=== PATIENT | female | born 1980 | race Caucasian/White ===

== ENCOUNTER 2018-06-15 11:26 | Emergency (ER) | payer OTHER ==
[~2018-06-15] VITALS: Ht 149.9 cm; Wt 71.7 kg
[2018-06-15 11:36] VITALS: Ht 149.9 cm; Wt 71.7 kg
[2018-06-15 12:09] LABS: BASOPHIL % 0.4 % (0-2); PLATELET COUNT 396 x10^3mcL (130-400); RED CELL DISTRIBUTION WIDTH 19.2 % (11.5-14.5)
[2018-06-15 12:10] LABS: rbc morphology (normal/abnorm) ABNORMAL (NORMAL)
[2018-06-15 12:24] LABS: CALCIUM 8.4 mg/dL (8.5-10.1); CARBON DIOXIDE 27.3 mmol/L (21-32); CHLORIDE SERUM 106 mmol/L (98-107); CREATININE SERUM 0.5 mg/dL (0.6-1.0); GFR1 > 60 mL/min; GLUCOSE SERUM 92 mg/dL (74-106); POTASSIUM SERUM 3.1 mmol/L (3.5-5.1); SODIUM SERUM 138 mmol/L (136-145)
[2018-06-15 13:07] VITALS: BP 120/68
== END 2018-06-15 13:07 | disposition home or self-care (01) ==
LOC: ED 11:26
PROVIDERS: Emergency Medicine
DX: M54.5 Low back pain (principal); D50.9 Iron deficiency anemia, unspecified; E78.00 Pure hypercholesterolemia, unspecified; J45.909 Unspecified asthma, uncomplicated; M19.90 Unspecified osteoarthritis, unspecified site
CPT/HCPCS: J1885

== ENCOUNTER 2019-04-20 06:39 | Emergency (ER) | payer OTHER ==
[~2019-04-20] VITALS: Ht 149.9 cm; Wt 72.1 kg
[2019-04-20 06:47] VITALS: BP 103/56; Ht 149.9 cm; Wt 72.1 kg
== END 2019-04-20 06:56 | disposition home or self-care (01) ==
LOC: ED 06:39
DX: T63.481A Toxic effect of venom of other arthropod, accidental (unintentional), initial encounter (principal); J45.909 Unspecified asthma, uncomplicated; M19.90 Unspecified osteoarthritis, unspecified site; Z90.49 Acquired absence of other specified parts of digestive tract; Y92.89 Other specified places as the place of occurrence of the external cause

== ENCOUNTER 2019-05-09 13:33 | Emergency (ER) | payer OTHER ==
[~2019-05-09] VITALS: Ht 149.9 cm; Wt 70.8 kg
[2019-05-09 14:17] VITALS: BP 124/64; Ht 149.9 cm; Wt 70.8 kg
== END 2019-05-09 15:20 | disposition left against medical advice (07) ==
LOC: ED 13:33
DX: Z53.21 Procedure and treatment not carried out due to patient leaving prior to being seen by health care provider (principal)

== ENCOUNTER 2019-06-16 01:43 | Emergency (ER) | payer OTHER ==
[~2019-06-16] VITALS: Ht 149.9 cm; Wt 73.9 kg
[2019-06-16 01:51] VITALS: Ht 149.9 cm; Wt 73.9 kg
[2019-06-16 02:41] VITALS: BP 127/71
== END 2019-06-16 02:41 | disposition home or self-care (01) ==
LOC: ED 01:43
DX: S40.021A Contusion of right upper arm, initial encounter (principal); W18.39XA Other fall on same level, initial encounter; Y93.89 Activity, other specified; Y92.89 Other specified places as the place of occurrence of the external cause; Y99.0 Civilian activity done for income or pay

== ENCOUNTER 2020-01-03 20:22 | Emergency (ER) | payer OTHER ==
[~2020-01-03] VITALS: Ht 160 cm; Wt 75.7 kg
[2020-01-03 20:32] VITALS: Ht 160 cm; Wt 75.7 kg
[2020-01-03 21:43] LABS: BASOPHIL % 1.4 % (0-2)
[2020-01-03 21:54] LABS: PLATELET COUNT 488 x10^3mcL (130-400); RED CELL DISTRIBUTION WIDTH 19.9 % (11.5-14.5)
[2020-01-03 21:57] LABS: CALCIUM 8.2 mg/dL (8.5-10.1); CARBON DIOXIDE 26.7 mmol/L (21-32); CHLORIDE SERUM 107 mmol/L (98-107); CREATININE SERUM 0.5 mg/dL (0.6-1.0); GFR1 > 60 mL/min; GLUCOSE SERUM 99 mg/dL (74-106); POTASSIUM SERUM 3.8 mmol/L (3.5-5.1); SODIUM SERUM 138 mmol/L (136-145)
[2020-01-03 22:01] LABS: ALKALINE PHOSPHATASE 107 U/L (46-116); ALT/SGPT 21 U/L (14-59); AST/SGOT 13 U/L (15-37); BILIRUBIN TOTAL 0.25 mg/dL (0.20-1.00); LIPASE 178 IU/L (73-393); TOTAL PROTEIN, SERUM 7.8 g/dL (6.4-8.2)
[2020-01-03 22:02] LABS: ALBUMIN 3.3 g/dL (3.4-5.0)
[2020-01-04 00:03] VITALS: BP 112/73
== END 2020-01-04 00:03 | disposition home or self-care (01) ==
LOC: ED 20:22
PROVIDERS: Specialist
DX: R10.816 Epigastric abdominal tenderness (principal); R10.11 Right upper quadrant pain; J45.909 Unspecified asthma, uncomplicated; M19.90 Unspecified osteoarthritis, unspecified site; F17.210 Nicotine dependence, cigarettes, uncomplicated; Z98.890 Other specified postprocedural states; Z90.49 Acquired absence of other specified parts of digestive tract
CPT/HCPCS: 36415; J1885

== ENCOUNTER 2020-01-11 14:29 | Emergency (ER) | payer OTHER ==
[~2020-01-11] VITALS: Ht 149.9 cm; Wt 74.8 kg
[2020-01-11 15:15] VITALS: BP 114/67; Ht 149.9 cm; Wt 74.8 kg
== END 2020-01-11 16:16 | disposition home or self-care (01) ==
LOC: ED 14:29
DX: R05 Cough (principal); Z76.0 Encounter for issue of repeat prescription; J45.909 Unspecified asthma, uncomplicated; M06.9 Rheumatoid arthritis, unspecified; Z98.890 Other specified postprocedural states; Z90.49 Acquired absence of other specified parts of digestive tract; Z91.038 Other insect allergy status

== ENCOUNTER 2020-02-02 16:44 | Emergency (ER) | payer OTHER ==
[~2020-02-02] VITALS: Ht 149.9 cm; Wt 74.8 kg
[2020-02-02 16:52] VITALS: BP 106/63; Ht 149.9 cm; Wt 74.8 kg
== END 2020-02-02 17:48 | disposition home or self-care (01) ==
LOC: ED 16:44
DX: R10.11 Right upper quadrant pain (principal); J45.909 Unspecified asthma, uncomplicated; Z90.49 Acquired absence of other specified parts of digestive tract; Z98.890 Other specified postprocedural states

== ENCOUNTER 2020-02-17 13:44 | Emergency (ER) | payer OTHER ==
[~2020-02-17] VITALS: Ht 149.9 cm; Wt 74.4 kg
[2020-02-17 13:47] VITALS: Ht 149.9 cm; Wt 74.4 kg
[2020-02-17 15:23] VITALS: BP 108/53
== END 2020-02-17 15:23 | disposition home or self-care (01) ==
LOC: ED 13:44
DX: R10.13 Epigastric pain (principal); J45.909 Unspecified asthma, uncomplicated; M06.9 Rheumatoid arthritis, unspecified; Z90.89 Acquired absence of other organs; Z90.49 Acquired absence of other specified parts of digestive tract

== ENCOUNTER 2020-03-26 10:00 | Emergency (ER) | payer OTHER ==
[~2020-03-26] VITALS: Ht 149.9 cm; Wt 73.9 kg
[2020-03-26 10:20] VITALS: Ht 149.9 cm; Wt 73.9 kg
[2020-03-26 11:46] VITALS: BP 119/50
== END 2020-03-26 11:46 | disposition home or self-care (01) ==
LOC: ED 10:00
DX: L03.031 Cellulitis of right toe (principal); J45.909 Unspecified asthma, uncomplicated; M19.90 Unspecified osteoarthritis, unspecified site; Z90.49 Acquired absence of other specified parts of digestive tract; Z98.890 Other specified postprocedural states

== ENCOUNTER 2020-05-28 12:55 | Emergency (ER) | payer OTHER ==
[~2020-05-28] VITALS: Ht 149.9 cm; Wt 76.2 kg
[2020-05-28 13:16] VITALS: BP 119/73; Ht 149.9 cm; Wt 76.2 kg
== END 2020-05-28 13:41 | disposition home or self-care (01) ==
LOC: ED 12:55
DX: T63.481A Toxic effect of venom of other arthropod, accidental (unintentional), initial encounter (principal); F17.210 Nicotine dependence, cigarettes, uncomplicated; X58.XXXA Exposure to other specified factors, initial encounter
CPT/HCPCS: 99406